=== PATIENT | male | born 1950 | race Caucasian/White ===

== ENCOUNTER 2019-01-16 05:39 | Inpatient (IN) ==
[2019-01-16] MEDS ORDERED: VANCOMYCIN 1,000 MG VIAL ONE (05:55)
[2019-01-16] MEDS ORDERED: ceFAZolin 1,000 MG VIAL ONE (05:55)
[2019-01-16] MEDS ORDERED: ROPIVACAINE 0.5% 30 ML VIAL ONE (05:56)
[2019-01-16] MEDS ORDERED: BUPIVACAINE SPINAL 0.75% 2 ML AMP SPINAL ONE (05:56)
[2019-01-16] MEDS ORDERED: FAMOTIDINE 20 MG TABLET ONE (05:56)
[2019-01-16] MEDS ORDERED: DEXAMETHASONE 4 MG/1 ML VIAL ONE (05:56)
[2019-01-16] MEDS ORDERED: LIDOCAINE 1% 5 ML VIAL ONE (05:57)
[2019-01-16] MEDS ORDERED: MIDAZOLAM 2 MG/2 ML VIAL ONE (05:57)
[2019-01-16] MEDS ORDERED: FAMOTIDINE 20 MG TABLET PO ONE (06:00)
[2019-01-16] MEDS ORDERED: ceFAZolin 1,000 MG in SYRINGE 1 EACH IV ONE (06:00)
[2019-01-16] MEDS ORDERED: VANCOMYCIN INJ 1,000 MG in SODIUM CHLORIDE 0.9% 250 ML IV ONE (06:00)
[2019-01-16] MEDS ORDERED: ACETAMINOPHEN 500 MG TABLET PO ONE (06:05)
[2019-01-16] MEDS ORDERED: GABAPENTIN 400 MG CAPSULE PO ONE (06:05)
[2019-01-16] MEDS ORDERED: PROPOFOL 500 MG/50 ML BOTTLE IV ONE (06:27)
[2019-01-16] MEDS ORDERED: LACTATED RINGERS 1,000 ML IV SCH (06:30)
[2019-01-16] MEDS ORDERED: BACITRACIN OINT 0.9 GM PACK TOP ONE (06:45)
[2019-01-16] MEDS ORDERED: MAGNESIUM HYDROXIDE SUSP 30 ML UDCUP PO PRN (07:21)
[2019-01-16] MEDS ORDERED: diphenhydrAMINE CAP 25 MG CAPSULE PO PRN (07:21)
[2019-01-16] MEDS ORDERED: oxyCODONE IR 5 MG TABLET PO PRN ×2 (07:21)
[2019-01-16] MEDS ORDERED: ONDANSETRON 4 MG/2 ML VIAL IV PRN (07:21)
[2019-01-16] MEDS ORDERED: MORPHINE 4 MG/1 ML VIAL IV PRN ×2 (07:21)
[2019-01-16] MEDS ORDERED: KETAMINE 500 MG/10 ML VIAL ONE (08:55)
[2019-01-16] MEDS ORDERED: TRANEXAMIC ACID 1,000 MG/10 ML VIAL ONE (08:55)
[2019-01-16] MEDS ORDERED: PHENYLEPHRINE 1 MG/10 ML SYRINGE IV ONE (08:55)
[2019-01-16] MEDS: KETOROLAC 30 MG/1 ML VIAL IV SCH ×3 (10:02→18:39)
[2019-01-16] MEDS: LACTATED RINGERS 1,000 ML IV SCH ×2 (10:02→18:38)
[2019-01-16] MEDS: ATORVASTATIN 20 MG TABLET PO SCH (10:04)
[2019-01-16] MEDS: PANTOPRAZOLE 20 MG TABLET PO SCH ×2 (10:04→21:04)
[2019-01-16] MEDS: CETIRIZINE 10 MG TABLET PO SCH (10:04)
[2019-01-16] MEDS: DOCUSATE SODIUM 100 MG CAPSULE PO SCH ×2 (10:04→21:04)
[2019-01-16] MEDS: CHLORTHALIDONE 25 MG TABLET PO SCH (10:04)
[2019-01-16] MEDS: FENOFIBRATE 160 MG TABLET PO SCH (10:15)
[2019-01-16] MEDS: ACETAMINOPHEN 500 MG TABLET PO SCH ×3 (11:23→22:50)
[2019-01-16] MEDS: ceFAZolin 2,000 MG in PREMIX 1 EACH IV SCH ×2 (13:32→21:05)
[2019-01-16] MEDS: FONDAPARINUX 2.5 MG/0.5 ML SYRINGE SUBCUT SCH (21:04)
[2019-01-16] MEDS: ZALEPLON 5 MG CAPSULE PO SCH (21:04)
[2019-01-17] MEDS: KETOROLAC 30 MG/1 ML VIAL IV SCH (00:55)
[2019-01-17] MEDS: LACTATED RINGERS 1,000 ML IV SCH (02:38)
[2019-01-17 04:52] LABS: Basophils % 0.1 % (0.0-0.8); Hematocrit 25.6 VOL% (42.0-52.0); Hemoglobin 7.9 GM/DL (14.0-18.0); Immature Granulocytes % 0.3 %; Immature Granulocytes Absolute 0.04 #; Lymphocytes # 0.8 10*3/uL (1.4-4.0); Lymphocytes % 6.7 % (21.2-54.2); Mean Corpuscular HGB Conc 30.9 GM/DL (32-36); Mean Corpuscular Hemoglobin 26 PG (27-34); Mean Corpuscular Volume 84.2 FL (87-102); Mean Platelet Volume 11.6 FL (9.6-12.0); Monocytes # 1.2 10*3/uL (0.11-0.8); Monocytes % 10.7 % (1.7-12.7); Neutrophils # 9.5 10*3/uL (1.4-7.4); Neutrophils % 82.2 % (38.7-73.9); Platelet Count 251 T/CUMM (130-400); Red Blood Count 3.04 MC/CUMM (3.8-5.5); White Blood Count 11.6 T/CUMM (4-12)
[2019-01-17] MEDS: ACETAMINOPHEN 500 MG TABLET PO SCH (05:01)
[2019-01-17 05:08] LABS: Calcium 8.7 MG/DL (8.5-10.1); Osmolality,Calculated 284.4 MOS/KG (273-304); Potassium 3.5 MMOL/L (3.5-5.1)
[2019-01-17] MEDS: FENOFIBRATE 160 MG TABLET PO SCH (10:20)
[2019-01-17] MEDS: ATORVASTATIN 20 MG TABLET PO SCH (10:21)
[2019-01-17] MEDS: DOCUSATE SODIUM 100 MG CAPSULE PO SCH ×2 (10:21→21:22)
[2019-01-17] MEDS: LOSARTAN 50 MG TABLET PO SCH (10:21)
[2019-01-17] MEDS: CETIRIZINE 10 MG TABLET PO SCH (10:21)
[2019-01-17] MEDS: CHLORTHALIDONE 25 MG TABLET PO SCH (10:22)
[2019-01-17] MEDS: PANTOPRAZOLE 20 MG TABLET PO SCH ×2 (10:23→21:22)
[2019-01-17] MEDS: CELECOXIB 200 MG CAPSULE PO SCH (15:11)
[2019-01-17] MEDS: FONDAPARINUX 2.5 MG/0.5 ML SYRINGE SUBCUT SCH (21:24)
[2019-01-18] MEDS: ZALEPLON 5 MG CAPSULE PO SCH (01:48)
[2019-01-18 05:36] LABS: Basophils % 0.3 % (0.0-0.8); Eosinophils # 0.1 10*3/uL (0.0-0.87); Eosinophils % 0.8 % (0.00-10.9); Hematocrit 26.6 VOL% (42.0-52.0); Immature Granulocytes % 0.5 %; Immature Granulocytes Absolute 0.05 #; Lymphocytes # 1.8 10*3/uL (1.4-4.0); Lymphocytes % 18.2 % (21.2-54.2); Mean Corpuscular HGB Conc 30.1 GM/DL (32-36); Mean Corpuscular Hemoglobin 26 PG (27-34); Mean Corpuscular Volume 86.4 FL (87-102); Mean Platelet Volume 11.2 FL (9.6-12.0); Monocytes % 10.3 % (1.7-12.7); Neutrophils # 6.8 10*3/uL (1.4-7.4); Neutrophils % 69.9 % (38.7-73.9); Platelet Count 255 T/CUMM (130-400); Red Blood Count 3.08 MC/CUMM (3.8-5.5); Red Cell Distribution Width 14.6 % (9.3-17.3); White Blood Count 9.7 T/CUMM (4-12)
[2019-01-18 05:48] LABS: Calcium 8.3 MG/DL (8.5-10.1); Osmolality,Calculated 294.4 MOS/KG (273-304)
[2019-01-18] MEDS ORDERED: GABAPENTIN 300 MG CAPSULE PO PRN (09:00)
[2019-01-18] MEDS: PANTOPRAZOLE 20 MG TABLET PO SCH (10:23)
[2019-01-18] MEDS: CELECOXIB 200 MG CAPSULE PO SCH (10:23)
[2019-01-18] MEDS: ATORVASTATIN 20 MG TABLET PO SCH (10:23)
[2019-01-18] MEDS: FENOFIBRATE 160 MG TABLET PO SCH (10:23)
[2019-01-18] MEDS: DOCUSATE SODIUM 100 MG CAPSULE PO SCH (10:24)
[2019-01-18] MEDS: CHLORTHALIDONE 25 MG TABLET PO SCH (10:24)
[2019-01-18] MEDS: LOSARTAN 50 MG TABLET PO SCH (10:24)
[2019-01-18] MEDS: CETIRIZINE 10 MG TABLET PO SCH (10:25)
[2019-01-18 11:40] VITALS: BP 138/72
== END 2019-01-18 11:15 | disposition home health service (06) | DRG 470 ==
LOC: N.OR 05:39 → N.SDSINP 05:40 → N.3E 09:21
PROVIDERS: ADMIT Orthopaedic Surgery; ATTEND Orthopaedic Surgery